=== PATIENT | female | born 1985 | race Caucasian/White ===

== ENCOUNTER 2018-09-06 13:44 | Inpatient (IN) | payer MEDICAID ==
[2018-09-06 15:40] LABS: ADD MAN DIFF? NO
[2018-09-06 15:43] LABS: BASOPHILS % 0.3 % (0.0-2.0); EOSINOPHILS % 0.6 % (0.0-7.0); HEMATOCRIT 36.6 % (37.0-47.0); HEMOGLOBIN 12.1 g/dl (12.0-16.0); LYMPHOCYTES # 1.6 10^3/ul (0.8-2.9); LYMPHOCYTES % 22.8 % (15.0-51.0); MEAN CORPUSCULAR HEMOGLOBIN 28.5 pg (29.0-33.0); MEAN CORPUSCULAR HGB CONC 33.1 g/dl (32.0-37.0); MEAN CORPUSCULAR VOLUME 86.3 fl (82.0-101.0); MEAN PLATELET VOLUME 11.5 fl (7.4-10.4); MONOCYTE # 0.5 10^3/ul (0.3-0.9); MONOCYTES % 7.5 % (0.0-11.0); NEUTROPHIL # 4.9 10^3/ul (1.6-7.5); NEUTROPHILS % 68.1 % (39.0-77.0); PLATELET COUNT 195 10^3/UL (140-415); RED BLOOD COUNT 4.24 10^6/ul (4.20-5.40); RED CELL DISTRIBUTION WIDTH 13.4 % (11.5-14.5)
[2018-09-06 15:43] LABS: WHITE BLOOD COUNT 7.2 10^3/ul (4.8-10.8)
[2018-09-06 15:53] LABS: INR 0.92; PROTIME 12.5 Sec (11.9-14.9)
[2018-09-06 15:54] LABS: PARTIAL THROMBOPLASTIN TIME 30.3 Sec (23.0-35.0)
[2018-09-06] MEDS ORDERED: CARBOPROST 250 MCG INJ IM (16:00)
[2018-09-06] MEDS ORDERED: OXYTOCIN 30 UNITS/LR 500 ML IV (16:00)
[2018-09-06] MEDS ORDERED: LIDOCAINE 1% (MPF) 30 ML INJ INJ (16:00)
[2018-09-06] MEDS: MISOPROSTOL 50 MCG CAPSULE PO ×2 (16:46→20:55)
[2018-09-06] MEDS: LACTATED RINGER'S 1,000 ML IV (20:55)
[2018-09-07] MEDS: LACTATED RINGER'S 1,000 ML IV ×3 (03:06→11:04)
[2018-09-07] MEDS: MISOPROSTOL 50 MCG CAPSULE PO ×5 (03:07→17:00)
[2018-09-07] MEDS ORDERED: FENTAnyl 2MCG/ML-ROPIV 0.2% 100 ML (10:09)
[2018-09-07] MEDS ORDERED: NALOXONE (0.4 MG/ML) INJ IV (13:00)
[2018-09-07] MEDS ORDERED: ONDANSETRON 4 MG INJ IV ×2 (13:00→21:30)
[2018-09-07] MEDS: FENTAnyl 2MCG/ML-ROPIV 0.2% 100 ML BAG EPI (15:51)
[2018-09-07 15:55] LABS: RAPID PLASMA REAGIN NONREACTIVE (NR)
[2018-09-07] MEDS: METHYLERGONOVINE 0.2 MG INJ IM (17:42)
[2018-09-07] MEDS: OXYTOCIN 30 UNITS/LR 500 ML IV ×2 (17:44→19:52)
[2018-09-07] MEDS: MISOPROSTOL 200 MCG TAB PR (17:48)
[2018-09-07] MEDS: ONDANSETRON 4 MG INJ IV (19:53)
[2018-09-07] MEDS: ACETAMINOPHEN 325 MG TAB PO (19:56)
[2018-09-07] MEDS ORDERED: LABETALOL 100 MG TAB PO (21:00)
[2018-09-07] MEDS: LACTATED RINGER'S 1,000 ML IV* (21:16)
[2018-09-07] MEDS: DEXTROSE 5%-LR 1,000 ML IV (21:16)
[2018-09-07] MEDS ORDERED: DIPHENHYDRAMINE 50 MG INJ IV (21:30)
[2018-09-07] MEDS ORDERED: MISOPROSTOL 200 MCG TAB PR (21:30)
[2018-09-07] MEDS ORDERED: ZOLPIDEM 5 MG TAB PO (21:30)
[2018-09-07] MEDS ORDERED: OXYCODONE/ASPIRIN (4.88/325) TAB PO (21:30)
[2018-09-07] MEDS ORDERED: DIBUCAINE 1% 30 GM OINT TOP (21:30)
[2018-09-07] MEDS ORDERED: CARBOPROST 250 MCG INJ IM (21:30)
[2018-09-07] MEDS ORDERED: METHYLERGONOVINE 0.2 MG INJ IM (21:30)
[2018-09-07] MEDS ORDERED: ACETAMINOPHEN 325 MG TAB PO (21:30)
[2018-09-07] MEDS ORDERED: OXYTOCIN 30 UNITS/LR 500 ML IV (21:30)
[2018-09-07] MEDS: IBUPROFEN 600 MG TAB PO (23:31)
[2018-09-07] MEDS: LANOLIN HPA 1 PKT TOP (23:31)
[2018-09-07] MEDS: SENNA/DOCUSATE NA (8.6MG/50MG) TAB PO (23:31)
[2018-09-07] MEDS: WITCH HAZEL/GLYCERIN PAD PR (23:32)
[2018-09-07] MEDS: BENZOCAINE 20% 56 ML SPRAY TOP (23:32)
[2018-09-08] MEDS: IBUPROFEN 600 MG TAB PO ×3 (05:49→17:11)
[2018-09-08 06:52] LABS: ADD MAN DIFF? NO
[2018-09-08 06:59] LABS: BASOPHILS % 0.2 % (0.0-2.0); EOSINOPHILS # 0.1 10^3/ul (0.0-0.5); EOSINOPHILS % 0.3 % (0.0-7.0); HEMATOCRIT 32.8 % (37.0-47.0); HEMOGLOBIN 10.8 g/dl (12.0-16.0); LYMPHOCYTES # 2.6 10^3/ul (0.8-2.9); LYMPHOCYTES % 16.6 % (15.0-51.0); MEAN CORPUSCULAR HEMOGLOBIN 28.4 pg (29.0-33.0); MEAN CORPUSCULAR HGB CONC 32.9 g/dl (32.0-37.0); MEAN CORPUSCULAR VOLUME 86.3 fl (82.0-101.0); MEAN PLATELET VOLUME 11.4 fl (7.4-10.4); MONOCYTES % 6.5 % (0.0-11.0); NEUTROPHILS % 75.8 % (39.0-77.0); PLATELET COUNT 189 10^3/UL (140-415); RED CELL DISTRIBUTION WIDTH 13.4 % (11.5-14.5)
[2018-09-08 06:59] LABS: WHITE BLOOD COUNT 15.8 10^3/ul (4.8-10.8)
[2018-09-08] MEDS: LANOLIN HPA 1 PKT TOP (07:49)
[2018-09-08] MEDS: MEASLES,MUMPS,RUBELLA VACCINE INJ SC* (09:39)
[2018-09-08] MEDS: DIPHTH/TET/ACEL PERTUSS (ADULT) 0.5 ML VIAL IM* (09:39)
[2018-09-08] MEDS: SENNA/DOCUSATE NA (8.6MG/50MG) TAB PO (09:42)
[2018-09-09] MEDS: IBUPROFEN 600 MG TAB PO ×3 (00:14→11:52)
[2018-09-09] MEDS: SENNA/DOCUSATE NA (8.6MG/50MG) TAB PO (09:29)
== END 2018-09-09 17:13 | disposition home or self-care (01) | DRG 806 ==
LOC: L-D 13:44 → PP1 09-07 21:14
PROVIDERS: Obstetrics & Gynecology
PROC: 3E0P7GC Introduction of Other Therapeutic Substance into Female Reproductive, Via Natural or Artificial Opening (ICD-10-PCS; 2018-09-06)
PROC: 4A1HXCZ Monitoring of Products of Conception, Cardiac Rate, External Approach (ICD-10-PCS; 2018-09-06)
PROC: 10E0XZZ Delivery of Products of Conception, External Approach (ICD-10-PCS; principal; 2018-09-07)
PROC: 0W8NXZZ Division of Female Perineum, External Approach (ICD-10-PCS; 2018-09-07)
PROC: 0UQGXZZ Repair Vagina, External Approach (ICD-10-PCS; 2018-09-07)
DX: O35.8XX0 Maternal care for other (suspected) fetal abnormality and damage, not applicable or unspecified (principal); O71.4 Obstetric high vaginal laceration alone; Z37.0 Single live birth; Z3A.39 39 weeks gestation of pregnancy
CPT/HCPCS: 62319; 76815; 85025; 85610; 85730; 86592; 86850; 86900; 86901